=== PATIENT | male | born 1995 | race Two or more races ===

== ENCOUNTER 2025-05-13 01:04 | Emergency (ER) | payer SELFPAY ==
[2025-05-13 01:05] VITALS: BMI 24.4
--- NOTE | 2025-05-13 01:10 | EKG_ITS ---
[facility] Test Date: 2025-05-13 Pat Name: ALBERTO Torrespartment: Room: - Gender: Male L[employer]: : 1995 Requested By: ED Temporary Provider Order Number: [id number] Reading MD: ED Temporary Provider Measurements Intervals [place] Rate: 89 P: 47 NE: 132 QRS: 26 QRSD: 98 T: 57 QT: 370 QTc: 452 Interpretive Statements SINUS RHYTHM No previous ECG available for comparison /store/S0/[id number]/ecg/[id number].pdf
[2025-05-13 01:11] VITALS: BP 122/79; PULSE 85; RESP 18; TEMP 37.1; O2SAT 96
--- NOTE | 2025-05-13 01:33 | XR_ITS ---
Examination: PA lateral chest 2 views Technique: PA lateral chest 2 views Date and time: May 13, 2025 0148 hrs. Indications: Chest pain beginning 5 days ago Findings: Normal heart size. Lungs are clear. The osseous structures are intact Impression: No active disease
[2025-05-13 01:50] LABS: Basophils # (Auto) 0.0 Thou/mm3 (0.0-0.2); Basophils % (Auto) 0 % (0-2.5); Eosinophils # (Auto) 0.5 Thou/mm3 (0.0-0.5); Eosinophils % (Auto) 5 % (0-10); Hematocrit 42.8 % (41.0-53.0); Hemoglobin 14.6 g/dL (13.5-16.0); Immature Granulocytes Auto 0.03 Thou/mm3 (0.00-0.00); Lymphocytes # (Auto) 3.6 Thou/mm3 (1.0-4.8); Lymphocytes % (Auto) 38 % (10-50); Mean Corpuscular HGB Conc 34.1 g/dl (31.0-37.0); Mean Corpuscular Hemoglobin 31.8 pg (25.0-35.0); Mean Corpuscular Volume 93 fL (80-100); Monocytes # (Auto) 0.9 Thou/mm3 (0.0-0.8); Monocytes % (Auto) 10 % (0-12); Neutrophils # (Auto) 4.4 Thou/mm3 (1.8-7.7); Neutrophils % (Auto) 47 % (37-80); Nucleated Red Blood Cell # 0.00 Thou/mm3 (0.00-0.00); Nucleated Red Blood Cell % 0 /100 WBC (0); Platelet Count 280 Thou/mm3 (140-440); RDW Standard Deviation 42.0 fL (35.1-43.9); Red Blood Count 4.59 Miln/mm3 (4.50-5.90); White Blood Count 9.4 Thou/mm3 (3.8-10.6)
[2025-05-13 02:13] LABS: Alanine Aminotransferase 90 U/L (10-49); Albumin, Serum 4.4 gm/dL (3.5-5.0); Albumin/Globulin Ratio 1.9 (1.2-2.2); Alkaline Phosphatase 65 U/L (46-116); Anion Gap 12 (7-16); Aspartate Amino Transferase 32 U/L (0-34); BUN/Creatinine Ratio 14 Ratio (12-20); Bilirubin,Total 0.3 mg/dL (0.3-1.2); Blood Urea Nitrogen 17 mg/dL (9-23); Calcium 9.9 mg/dL (8.3-10.6); Calcium (Corrected) 9.9 mg/dL (8.5-10.1); Carbon Dioxide 26.0 mMol/L (20.0-31.0); Chloride 104 mMol/L (98-107); Creatinine (Component) 1.2 mg/dL (0.6-1.3); Estimated Creatinine Clearance 96.7 mL/min (>60); Globulin 2.3 gm/dL (2.3-3.5); Glucose 106 mg/dL (74-106); Osmolality,Calculated 284 (275-295); Potassium 3.8 mMol/L (3.4-5.1); Sodium 142 mMol/L (136-145); Total Protein 6.7 gm/dL (5.7-8.2); Troponin I < 0.002 ng/mL (0.0-0.045); eGFR > 60 See Note
[2025-05-13 03:19] LABS: D-Dimer < 250 ng/mL (<600)
[2025-05-13] MEDS: FAMOTIDINE 20 MG TABLET 40 MG PO (03:46)
--- NOTE | 2025-05-13 03:46 | PD.EDCHEST ---
ED Chest Pain RME/HPI General Chief Complaint: Chest Pain Stated Complaint: CHEST PAIN Time Seen by Provider: 05/13/25 02:40 Arrival date/time: 05/13/25 01:04 29M with no significant PMH presents to ED with 5 days of burning CP that is worse when eating. Possible SOB, but patient denies cough. Limitations: no limitations Related Data Previous Rx's ?Medication ?Instructions ?Recorded prednisone 50 mg tablet 50 mg PO QDAY #7 tabs 11/29/22 Allergies Allergy/AdvReac Type Severity Reaction Status Date / Time No Known Allergies Allergy Verified 11/29/22 21:12 Review of Systems Review of Systems Systems Reviewed: All systems reviewed, normal except as documented Constitutional Constitutional: Reports system reviewed and no additional complaints, except as documented, Denies fever(s) and Denies headache(s) ENT Ears, Nose, Mouth, and Throat: Denies disequilibrium and Denies headache(s) Cardiovascular Cardiovascular: Reports system reviewed and no additional complaints, except as documented, Reports as per HPI, Reports chest pain (burning) and Denies dyspnea Respiratory Respiratory: Reports system reviewed and no additional complaints, except as documented, Denies cough and Denies dyspnea Gastrointestinal Gastrointestinal: Reports system reviewed and no additional complaints, except as documented, Denies abdominal pain, Denies nausea and Denies vomiting Neurologic Neurologic: Reports system reviewed and no additional complaints, except as documented, Denies confusion, Denies disequilibrium and Denies headache(s) Psychiatric Psychiatric: Denies confusion Past Medical History Social History SMOKING STATUS: Never smoker ED Exam General Limitations: Present no limitations General appearance: Present alert and in no apparent distress Head Head exam: Present atraumatic Neck Neck exam: Present normal inspection, full ROM and trachea midline Chest Chest inspection: Present normal inspection and symmetric chest wall rise Respiratory Respiratory exam: Present normal lung sounds bilaterally Cardiovascular Cardiovascular exam: Present regular rate, normal rhythm and normal heart sounds Extremities Exam Extremities exam: Present normal inspection and full ROM Back Exam Back exam: Present normal inspection and full ROM Neurological Exam Neurological exam: Present alert, oriented X3 and CN II-XII intact Psychiatric Psychiatric exam: Present normal affect and normal mood Skin Skin exam: Present warm, dry, intact and normal color Course Quality Measures none Orders Category Date Time Status EKG (ED ONLY) *Do not use* NOW Care 05/13/25 01:11 Completed EKG (ED Only) Stat Exams 05/13/25 01:10 Draft XR chest 2V Stat Exams 05/13/25 01:33 Taken CBC Stat Lab 05/13/25 01:42 Completed CMP [Comprehensive Metabolic Panel] Stat Lab 05/13/25 01:42 Completed D-Dimer Stat Lab 05/13/25 01:42 Completed Troponin I Stat Lab 05/13/25 01:42 Completed Famotidine [Pepcid] Med 05/13/25 03:29 Discontinued 40 mg PO X1 ONE mg Hyd/Al Hyd/Maddie Susp [Maalox Susp] Med 05/13/25 03:29 Discontinued 30 ml PO X1 ONE Vital Signs Vital signs: Vital Signs Temperature 98.7 F 05/13/25 01:11 Pulse Rate 85 05/13/25 01:11 Respiratory Rate 18 05/13/25 01:11 Blood Pressure 122/79 05/13/25 01:11 Pulse Oximetry (%) 96 05/13/25 01:11 Oxygen Delivery Method Room Air 05/13/25 01:11 O2 at 96% on RA and WNLs Chest Pain MDM Narrative MDM Narrative:: 29M with no significant PMH presents to ED with 5 days of burning CP that is worse when eating. Possible SOB, but patient denies cough. Physical exam reveals clear lungs and normal WOB. RRR. Patient is afebrile, calm, and alert. EKG is NSR. Telerad CXR read normal. No leukocytosis or anemia. CMP unremarkable. Trop and D-dimer normal. Patient data External records reviewed:: [facility] previous records Clinical information provided by:: patient Social determinants that could affect healthcare access:: none Patient has the following chronic illnesses:: none How is presenting disease/condition affected by chronic disease/condition?: no chronic disease Evaluation data The following diagnostics were reviewed and interpreted by me:: lab results, radiology exam(s) and EKG tracing(s) Lab and/or radiology exams considered but not ordered:: ordered Interpretation Summary: above Medications / Prescriptions Medications or Prescriptions considered but not ordered:: ordered Medication administrations:: Medication Administration History Discontinued Medications Al Hydrox/Mg Hydrox/Simethicone (Mg Hyd/Al Hyd/Maddie (Maalox Reg) Susp 30 Ml Udc) 30 ml PO X1 ONE Stop: 05/13/25 03:30 Last Admin: 05/13/25 03:47 Dose: 30 ml Documented By: CVL Famotidine (Famotidine 20 Mg Tablet) 40 mg PO X1 ONE Stop: 05/13/25 03:30 Last Admin: 05/13/25 03:46 Dose: 40 mg Documented By: MAIKEL above Consultations Consultation(s) initiated? (list below): No Diagnosis Chest Pain Differential Diagnosis: fracture of rib, pneumothorax, stable angina, unstable angina pectoris, atypical chest pain, st elevation myocardial infarction, costochondritis, chest pain, biliary colic and other (GERD and PE) Most likely diagnosis given after review of the tests above:: atypical chest pain Admission Indicated Admission indicated?: not indicated Admission Request Was there a request for admission?: No Disposition Plan Disposition Plan: Discharge Discharge Attestation Discharge Attestation: The patient and all family members were given an opportunity to ask questions and understood the discharge instructions. Discharge instructions specifically effects, indications for sooner follow up or return to the emergency department, and the expected course of current diagnosis. Patient condition: Stable Discharge Plan Plan Patient Disposition: HOME (Self Care) Discharge Disposition comment: Stable Prescriptions/Referrals Prescriptions/Med Rec: No Action prednisone 50 mg tablet 50 mg PO QDAY Qty: 7 0RF Referrals: No Primary/Family,Physician [Primary Care Provider] - In 1 week Problem List Clinical Impression: Atypical chest pain Patient/Caregiver Discharge Instructions Education Materials: ED Chest Pain, Uncertain Cause Additional Instructions: Please follow-up with PCP within 24-48 hours and return immediately if symptoms worsen. Print Language: Croatian Stand Alone Forms: Patient Portal Info Letter BONIFACIO/KEILA Supervising Physician BONIFACIO/KEILA Supervising Physician: Dr. Malone
[2025-05-13] MEDS: MG HYD/AL HYD/SIME (Maalox Reg) SUSP 30 ML UDC PO (03:47)
--- NOTE | 2025-05-13 04:05 | PRELIM_ITS ---
Radiographs of the chest (2 views). May 13, 2025 0147 hours Clinical history: Chest pain. No prior study is available for comparison at the time of interpretation. Findings: The heart, mediastinum and pulmonary trudi are unremarkable. The lungs are clear. There is no pleural effusion. The bony thorax is unremarkable. Impression: No acute cardiopulmonary process. Report Electronically Signed By: William Sellers 05/13/2025 4:05:28 AM [EST]
[2025-05-13 04:59] VITALS: RESP 18
== END 2025-05-13 05:00 | disposition home or self-care (01) ==
PROVIDERS: Physician Assistant; Emergency Provider Emergency Medicine
DX: R07.89 Other chest pain (principal)
CPT/HCPCS: 36415; 71046; 80053; 84484; 85025; 85379; 93005; 99283; A9270